=== PATIENT | female | born 1950 | race Asian ===

== ENCOUNTER 2018-11-18 22:56 | Emergency (ER) | payer OTHER ==
[~2018-11-18] VITALS: Ht 165.1 cm; Wt 68.0 kg
[2018-11-18 23:15] VITALS: BP_SYST 166
[2018-11-19 00:03] VITALS: BP_SYST 166
== END 2018-11-19 00:03 | disposition home or self-care (01) ==
LOC: SED 22:56
DX: E78.00 Pure hypercholesterolemia, unspecified (principal); I10 Essential (primary) hypertension
CPT/HCPCS: 99281